=== PATIENT | male | born 1990 ===

== ENCOUNTER 2017-05-15 00:15 | Emergency (ER) | payer OTHER ==
[2017-05-15] MEDS ORDERED: RABIES VACCINE 2.5 Units PDR IM ONE (00:53)
[2017-05-15] MEDS ORDERED: Rabies Immune Globulin 150 INTLU/ML VIAL IM ONE (00:53)
[2017-05-15 00:54] VITALS: BP 128/57; PULSE 85; RESP 16; TEMP 98.6; O2SAT 100
[2017-05-15] MEDS ORDERED: Tmp-Smz 800 mg-160 mg DS Tab PO STA (01:15)
--- NOTE | 2017-05-15 01:33 | ED PDOC ---
HPI: Skin/Bite Injury Time Seen by Provider: 05/15/17 00:37 Chief Complaint (Nursing): Bite Chief Complaint (Provider): cat bite History Per: Patient, Family, Nephrology Social Worker History/Exam Limitations: no limitations Onset/Duration Of Symptoms: Hrs (2) Current Symptoms Are (Timing): Still Present Additional History Per: Patient Additional Complaint(s): 26 y/o male presents with cat bite to right hand sustained 2 hours prior to arrival. Patient states he was feeding a stray cat when a dog was approaching them and cat became scared and went to jump away, biting patients right hand and scratching right arm. Denies fever, pain/drainage at site, numbness/ weakness right upper extremity, limitation of movement. Last Tetanus unknown. Past Medical History Reviewed: Historical Data, Nursing Documentation, Vital Signs Vital Signs: Last Vital Signs Temp 98.6 F 05/15/17 00:50 Pulse 85 05/15/17 00:50 Resp 16 05/15/17 00:50 BP 128/57 L 05/15/17 00:50 Pulse Ox 100 05/15/17 01:36 - Medical History Other PMH: hard of hearing - Surgical History Surgical History: No Surg Hx - Family History Family History: States: No Known Family Hx - Home Medications Home Medications: Ambulatory Orders Medication Instructions Recorded Metronidazole [Flagyl] 500 mg PO TID #14 tablet 05/15/17 Sulfamethoxazole/Trimethoprim 1 tab PO BID #9 tab 05/15/17 [Bactrim DS 800 mg-160 mg] - Allergies Allergies/Adverse Reactions: Allergies Allergy/AdvReac Type Severity Reaction Status Date / Time acetaminophen [From Tylenol] Allergy SWELLING Verified 05/15/17 00:52 Penicillins Allergy SWELLING Verified 05/15/17 00:52 Review of Systems ROS Statement: Except As Marked, All Systems Reviewed And Found Negative Musculoskeletal: Positive for: Hand Pain Physical Exam - Reviewed Nursing Documentation Reviewed: Yes Vital Signs Reviewed: Yes - Physical Exam Appears: Positive for: Well, Non-toxic, No Acute Distress, Uncomfortable Head Exam: Positive for: ATRAUMATIC, NORMAL INSPECTION, NORMOCEPHALIC Skin: Positive for: Normal Color Eye Exam: Positive for: Normal appearance ENT: Positive for: Normal ENT Inspection Cardiovascular/Chest: Positive for: Regular Rate, Rhythm Respiratory: Positive for: Normal Breath Sounds Gastrointestinal/Abdominal: Positive for: Normal Exam Extremity: Positive for: Normal ROM, Other (multiple superficial puncture wounds dorsal right hand base of 1st digit. Superficial abrasion noted volar right forearm. No drainage, surrounding erythema, or swelling noted) Neurologic/Psych: Positive for: Alert, Oriented - ECG O2 Sat by Pulse Oximetry: 100 - Progress ED Course And Treament: Adacel IM, rabies immune globulin, rabies vaccine, bactrim DS, Flagyl PO Bites/abrasion irrigated with 250mL normal saline 1cc rabies IG able to be infiltrated around and in to wounds, remaining cc's distributed IM Bacitracin applied to wounds, bandaged Patient educated on wound care, rx Bactrim DS, flagyl given. Advised neosporin applications Follow up accordingly for vaccine schedule Disposition - Clinical Impression Clinical Impression: Cat bite - Patient ED Disposition Is Patient to be Admitted: No Counseled Patient/Family Regarding: Diagnosis, Need For Followup, Rx Given - Disposition Referrals: [facility] [Outside] Disposition: Routine/Home Disposition Time: 02:43 Condition: STABLE Prescriptions: Metronidazole [Flagyl] 500 mg PO TID #14 tablet Sulfamethoxazole/Trimethoprim [Bactrim DS 800 mg-160 mg] 1 tab PO BID #9 tab Instructions: Rabies Vaccine (By injection), Rabies Immune Globulin (By injection), Animal Bite (ED) Print Language: DUTCH
[2017-05-15] MEDS ORDERED: Tmp-Smz 800 mg-160 mg DS Tab ONE (01:57)
== END 2017-05-15 03:30 | disposition home or self-care (01) ==
LOC: H.ER 00:15
DX: S61.451A Open bite of right hand, initial encounter (principal); Z23 Encounter for immunization; Z88.0 Allergy status to penicillin; W55.01XA Bitten by cat, initial encounter

== ENCOUNTER 2017-05-18 19:44 | Emergency (ER) | payer OTHER ==
[2017-05-18 19:54] VITALS: BP 131/74; PULSE 90; RESP 16; TEMP 98.2; O2SAT 100
[2017-05-18] MEDS ORDERED: RABIES VACCINE 2.5 Units PDR IM ONE (20:09)
--- NOTE | 2017-05-18 20:14 | ED PDOC ---
HPI: General Adult Time Seen by Provider: 05/18/17 19:57 Chief Complaint (Nursing): Rabies Vaccine Series Chief Complaint (Provider): Rabies Vaccine Series History Per: Patient History/Exam Limitations: clinical condition Current Symptoms Are (Timing): Still Present Additional Complaint(s): 26 year old male presents to the emergency department for Day 3 of rabies vaccine series. Denies any medical complaints. Past Medical History Vital Signs: Last Vital Signs Temp 98.2 F 05/18/17 19:52 Pulse 90 05/18/17 19:52 Resp 16 05/18/17 19:52 BP 131/74 05/18/17 19:52 Pulse Ox 100 05/18/17 20:30 - Family History Family History: States: No Known Family Hx - Home Medications Home Medications: Ambulatory Orders Medication Instructions Recorded Metronidazole [Flagyl] 500 mg PO TID #14 tablet 05/15/17 Sulfamethoxazole/Trimethoprim 1 tab PO BID #9 tab 05/15/17 [Bactrim DS 800 mg-160 mg] - Allergies Allergies/Adverse Reactions: Allergies Allergy/AdvReac Type Severity Reaction Status Date / Time acetaminophen [From Tylenol] Allergy SWELLING Verified 05/15/17 00:52 Penicillins Allergy SWELLING Verified 05/15/17 00:52 Review of Systems ROS Statement: Except As Marked, All Systems Reviewed And Found Negative (As per HPI, otherwise negative) Skin: Positive for: Other (History of bite) Physical Exam - Reviewed Nursing Documentation Reviewed: Yes Vital Signs Reviewed: Yes - Physical Exam Appears: Positive for: Non-toxic, No Acute Distress Head Exam: Positive for: NORMAL INSPECTION Skin: Positive for: Normal Color, Warm, Dry Cardiovascular/Chest: Positive for: Regular Rate, Rhythm. Negative for: Murmur Respiratory: Positive for: Normal Breath Sounds. Negative for: Accessory Muscle Use, Respiratory Distress Extremity: Positive for: Normal ROM, Capillary Refill (normal). Negative for: Tenderness, Pedal Edema, Deformity, Swelling Neurologic/Psych: Positive for: Alert, personnel worker II-XII, Oriented (x3) - ECG O2 Sat by Pulse Oximetry: 100 (RA) Pulse Ox Interpretation: Normal Medical Decision Making Medical Decision Making: Time: 2008 Initial impression: Rabies Vaccine Series Initial plan: --Rabies Vaccine 2.5 units IM --Discharge Time: 2012 --Patient is stable for discharge. Advised to return to the ER for day 7 & day 14 rabies vaccination. Clinical Impression: Need for rabies vaccination Scribe Attestation: Documented by Sandi Maher, acting as a scribe for Faith Lam PA-C Provider Scribe Attestation: All medical record entries made by the Scribe were at my direction and personally dictated by me. I have reviewed the chart and agree that the record accurately reflects my personal performance of the history, physical exam, medical decision making, and the department course for this patient. I have also personally directed, reviewed, and agree with the discharge instructions and disposition. Disposition - Clinical Impression Clinical Impression: Need for rabies vaccination - Patient ED Disposition Is Patient to be Admitted: No Counseled Patient/Family Regarding: Need For Followup - Disposition Disposition: Routine/Home Disposition Time: 20:13 Condition: STABLE Additional Instructions: Patient advised to return to the ER on the following days for day 7 05/22/17 day 14 05/29/17 to complete rabies vaccination Instructions: Rabies Vaccine (By injection) Forms: [employer] (Barbadian) Print Language: LUXEMBOURGER - PA / FLIGHT ATTENDANT RAMP / Resident Statement MD/DO has reviewed & agrees with the documentation as recorded.
--- NOTE | 2017-05-18 20:14 | ED PDOC ---
HPI: General Adult Time Seen by Provider: 05/18/17 19:57 Chief Complaint (Nursing): Rabies Vaccine Series Chief Complaint (Provider): Rabies Vaccine Series History Per: Patient History/Exam Limitations: no limitations Current Symptoms Are (Timing): Still Present Additional Complaint(s): 26 year old male presents to the emergency department for Day 3 of rabies vaccine series. Denies any medical complaints. Past Medical History Reviewed: Historical Data, Nursing Documentation, Vital Signs Vital Signs: Last Vital Signs Temp 98.2 F 05/18/17 19:52 Pulse 90 05/18/17 19:52 Resp 16 05/18/17 19:52 BP 131/74 05/18/17 19:52 Pulse Ox 100 05/18/17 19:52 - Medical History PMH: No Chronic Diseases - Surgical History Surgical History: No Surg Hx - Family History Family History: States: Unknown Family Hx - Social History Current smoker - smoking cessation education provided: No Alcohol: None Drugs: Denies - Home Medications Home Medications: Ambulatory Orders Medication Instructions Recorded Metronidazole [Flagyl] 500 mg PO TID #14 tablet 05/15/17 Sulfamethoxazole/Trimethoprim 1 tab PO BID #9 tab 05/15/17 [Bactrim DS 800 mg-160 mg] - Allergies Allergies/Adverse Reactions: Allergies Allergy/AdvReac Type Severity Reaction Status Date / Time acetaminophen [From Tylenol] Allergy SWELLING Verified 05/15/17 00:52 Penicillins Allergy SWELLING Verified 05/15/17 00:52 Review of Systems ROS Statement: Except As Marked, All Systems Reviewed And Found Negative (As per HPI, otherwise negative) - ECG O2 Sat by Pulse Oximetry: 100 (RA) Pulse Ox Interpretation: Normal Medical Decision Making Medical Decision Making: Time: 2008 Initial impression: Rabies Vaccine Series Initial plan: --Rabies Vaccine 2.5 units IM --Discharge Scribe Attestation: Documented by Sandi Maher, acting as a scribe for Faith Lam PA-C Provider Scribe Attestation: All medical record entries made by the Scribe were at my direction and personally dictated by me. I have reviewed the chart and agree that the record accurately reflects my personal performance of the history, physical exam, medical decision making, and the department course for this patient. I have also personally directed, reviewed, and agree with the discharge instructions and disposition. Disposition - Disposition Forms: [employer] (Beninese)
== END 2017-05-18 21:08 | disposition home or self-care (01) ==
LOC: H.ER 19:44
DX: Z29.14 Encounter for prophylactic rabies immune globulin (principal)

== ENCOUNTER 2017-05-22 20:24 | Emergency (ER) | payer OTHER ==
[2017-05-22 20:53] VITALS: BP 90/60; PULSE 83; RESP 18; TEMP 98.6; O2SAT 99
[2017-05-22] MEDS ORDERED: RABIES VACCINE 2.5 Units PDR IM ONE (21:09)
--- NOTE | 2017-05-22 21:27 | ED PDOC ---
HPI: General Adult Time Seen by Provider: 05/22/17 21:07 Chief Complaint (Nursing): Rabies Vaccine Series Chief Complaint (Provider): Rabies Vaccine Series History Per: Patient History/Exam Limitations: no limitations Onset/Duration Of Symptoms: Days (x7) Current Symptoms Are (Timing): Still Present Additional Complaint(s): 26 year old male who presents to the emergency department for day 7 treatment of rabies vaccine series. Patient offers no medical complaints. PMD: none provided Past Medical History Reviewed: Historical Data, Nursing Documentation, Vital Signs Vital Signs: Last Vital Signs Temp 98.6 F 05/22/17 20:49 Pulse 83 05/22/17 20:49 Resp 18 05/22/17 20:49 BP 90/60 L 05/22/17 20:49 Pulse Ox 99 05/22/17 21:32 - Medical History PMH: No Chronic Diseases - Surgical History Surgical History: No Surg Hx - Family History Family History: States: Unknown Family Hx - Social History Current smoker - smoking cessation education provided: No Alcohol: None Drugs: Denies - Home Medications Home Medications: Ambulatory Orders Medication Instructions Recorded Metronidazole [Flagyl] 500 mg PO TID #14 tablet 05/15/17 Sulfamethoxazole/Trimethoprim 1 tab PO BID #9 tab 05/15/17 [Bactrim DS 800 mg-160 mg] - Allergies Allergies/Adverse Reactions: Allergies Allergy/AdvReac Type Severity Reaction Status Date / Time acetaminophen [From Tylenol] Allergy SWELLING Verified 05/15/17 00:52 Penicillins Allergy SWELLING Verified 05/15/17 00:52 Review of Systems ROS Statement: Except As Marked, All Systems Reviewed And Found Negative Skin: Positive for: Other (known history of bite) Physical Exam - Reviewed Nursing Documentation Reviewed: Yes Vital Signs Reviewed: Yes - Physical Exam Appears: Positive for: Well, Non-toxic, No Acute Distress Skin: Positive for: Normal Color, Warm, Dry. Negative for: Rash Cardiovascular/Chest: Positive for: Regular Rate, Rhythm, Chest Non Tender Respiratory: Positive for: Normal Breath Sounds. Negative for: Decreased Breath Sounds, Respiratory Distress Gastrointestinal/Abdominal: Positive for: Normal Exam, Soft. Negative for: Tenderness Extremity: Positive for: Normal ROM (upper/lower). Negative for: Tenderness ( upper), Pedal Edema (bilateral), Deformity (upper/lower), Swelling (upper) Neurologic/Psych: Positive for: Alert (x3), electronic sensing equipment assembler II-XII (intact), Oriented. Negative for: Motor/Sensory Deficits - ECG O2 Sat by Pulse Oximetry: 99 (RA) Pulse Ox Interpretation: Normal Medical Decision Making Medical Decision Making: Initial Impression: Rabies Vaccine Series Initial Plan: * Rabavert vac inj 2.5units IM Scribe Attestation: Documented by Josseline Mccall, acting as a scribe for Faith Lam PA-C. Provider Scribe Attestation: All medical record entries made by the Scribe were at my direction and personally dictated by me. I have reviewed the chart and agree that the record accurately reflects my personal performance of the history, physical exam, medical decision making, and the department course for this patient. I have also personally directed, reviewed, and agree with the discharge instructions and disposition. Disposition - Clinical Impression Clinical Impression: Need for rabies vaccination - Patient ED Disposition Is Patient to be Admitted: No Counseled Patient/Family Regarding: Diagnosis, Need For Followup - Disposition Disposition: Routine/Home Disposition Time: 21:10 Condition: STABLE Additional Instructions: Return to the ER on day 14 05/29/17, for your last rabies vaccine. Instructions: Rabies Vaccine (By injection) Forms: [employer] (Cypriot) Print Language: PORTUGUESE - PA / NETWORK SYSTEMS ANALYST / Resident Statement MD/ has reviewed & agrees with the documentation as recorded.
== END 2017-05-22 21:50 | disposition home or self-care (01) ==
LOC: H.ER 20:24
DX: Z29.14 Encounter for prophylactic rabies immune globulin (principal); Z88.0 Allergy status to penicillin

== ENCOUNTER 2017-05-29 18:09 | Emergency (ER) | payer OTHER ==
[2017-05-29 19:01] VITALS: BP 161/77; PULSE 93; RESP 16; TEMP 98.2; O2SAT 99
--- NOTE | 2017-05-29 20:05 | ED PDOC ---
Upper Extremity Pain/Injury Time Seen by Provider: 05/29/17 19:07 Chief Complaint (Nursing): Rabies Vaccine Series Chief Complaint (Provider): Rabies Vaccine Series History Per: Patient History/Exam Limitations: no limitations Onset/Duration Of Symptoms: Days Pain Scale Rating Of: 0 Exacerbating Factor(s): Nothing Additional Complaint(s): Guy Piedra is a 26 year old male, with no significant past medical history, who presents to the emergency department for day 14 of rabies vaccine series. Bite in right hand completely healed. Patient denies any current medical complaints. PMD: None provided. Past Medical History Reviewed: Historical Data, Nursing Documentation, Vital Signs Vital Signs: Last Vital Signs Temp 98.2 F 05/29/17 18:58 Pulse 93 H 05/29/17 18:58 Resp 16 05/29/17 18:58 BP 161/77 H 05/29/17 18:58 Pulse Ox 99 05/29/17 18:58 - Medical History PMH: No Chronic Diseases - Surgical History Surgical History: No Surg Hx - Family History Family History: States: Unknown Family Hx - Home Medications Home Medications: Ambulatory Orders Medication Instructions Recorded Metronidazole [Flagyl] 500 mg PO TID #14 tablet 05/15/17 Sulfamethoxazole/Trimethoprim 1 tab PO BID #9 tab 05/15/17 [Bactrim DS 800 mg-160 mg] - Allergies Allergies/Adverse Reactions: Allergies Allergy/AdvReac Type Severity Reaction Status Date / Time acetaminophen [From Tylenol] Allergy SWELLING Verified 05/29/17 18:58 Penicillins Allergy SWELLING Verified 05/29/17 18:58 Review of Systems ROS Statement: Except As Marked, All Systems Reviewed And Found Negative Musculoskeletal: Negative for: Hand Pain (right hand bite healed) Physical Exam - Reviewed Nursing Documentation Reviewed: Yes Vital Signs Reviewed: Yes - Physical Exam Appears: Positive for: Well, Non-toxic, No Acute Distress Head Exam: Positive for: ATRAUMATIC, NORMAL INSPECTION, NORMOCEPHALIC Skin: Positive for: Normal Color, Warm, Dry Eye Exam: Positive for: Normal appearance Neck: Positive for: Painless ROM, Supple Respiratory: Negative for: Respiratory Distress Extremity: Positive for: Normal ROM (right hand). Negative for: Tenderness ( right hand), Pedal Edema, Calf Tenderness, Deformity (right hand), Swelling ( right hand) Neurologic/Psych: Positive for: Alert, Oriented (x3). Negative for: Motor/ Sensory Deficits - ECG O2 Sat by Pulse Oximetry: 99 (RA) Pulse Ox Interpretation: Normal Medical Decision Making Medical Decision Making: Initial Impression: Rabies vaccine series --Rabies Vaccine 2.5 units IM administered to the patient. ~ Scribe Attestation: Documented by Nicolas Colón, acting as a scribe for Faith Lam PA-C. Provider Scribe Attestation: All medical record entries made by the Scribe were at my direction and personally dictated by me. I have reviewed the chart and agree that the record accurately reflects my personal performance of the history, physical exam, medical decision making, and the department course for this patient. I have also personally directed, reviewed, and agree with the discharge instructions and disposition. Disposition - Clinical Impression Clinical Impression: Need for rabies vaccination - Patient ED Disposition Is Patient to be Admitted: No - Disposition Disposition: Routine/Home Disposition Time: 20:50 Condition: STABLE Instructions: Rabies Vaccine (By injection) Forms: [employer] (Cuban) Print Language: KENYAN - PA / MARKETING INFORMATION COORDINATOR / Resident Statement / has reviewed & agrees with the documentation as recorded.
[2017-05-29] MEDS: RABIES VACCINE 2.5 Units PDR IM ONE (20:45)
== END 2017-05-29 20:50 | disposition home or self-care (01) ==
LOC: H.ER 18:09
DX: Z29.14 Encounter for prophylactic rabies immune globulin (principal); Z88.0 Allergy status to penicillin

== ENCOUNTER 2017-11-13 20:33 | Emergency (ER) | payer OTHER ==
[2017-11-13 21:06] VITALS: RESP 18; TEMP 98.5; O2SAT 99
--- NOTE | 2017-11-13 21:50 | ED PDOC ---
HPI: Male Pain Time Seen by Provider: 11/13/17 21:16 Chief Complaint (Nursing): Male Genitourinary Chief Complaint (Provider): dysuria History Per: Patient History/Exam Limitations: no limitations Onset/Duration Of Symptoms: Days (2 months) Current Symptoms Are (Timing): Still Present Additional Complaint(s): 26 y/o male presents for evaluation of dysuria x 2 months. Associated increased urine frequency, and suprapubic fullness. Denies fever, nausea/ vomiting, back pain, penile discharge, testicular pain/swelling. Patient states he has not been sexually active in over 2 years. Past Medical History Reviewed: Historical Data, Nursing Documentation, Vital Signs Vital Signs: Last Vital Signs Temp 98.5 F 11/13/17 21:07 Pulse 124 H 11/13/17 21:14 Resp 18 11/13/17 21:07 BP 127/80 11/13/17 21:07 Pulse Ox 99 11/13/17 21:07 - Medical History PMH: Anxiety - Surgical History Surgical History: No Surg Hx - Family History Family History: States: Unknown Family Hx - Living Arrangements Living Arrangements: With Family - Home Medications Home Medications: Ambulatory Orders Medication Instructions Recorded Metronidazole [Flagyl] 500 mg PO TID #14 tablet 05/15/17 Sulfamethoxazole/Trimethoprim 1 tab PO BID #9 tab 05/15/17 [Bactrim DS 800 mg-160 mg] Ciprofloxacin HCl [Cipro] 500 mg PO BID #5 tab 11/14/17 Phenazopyridine HCl [Pyridium] 100 mg PO TID PRN #5 tab 11/14/17 - Allergies Allergies/Adverse Reactions: Allergies Allergy/AdvReac Type Severity Reaction Status Date / Time acetaminophen [From Tylenol] Allergy SWELLING Verified 05/29/17 18:58 Penicillins Allergy SWELLING Verified 05/29/17 18:58 Review of Systems ROS Statement: Except As Marked, All Systems Reviewed And Found Negative Genitourinary Male: Positive for: Dysuria, Frequency Physical Exam - Reviewed Nursing Documentation Reviewed: Yes Vital Signs Reviewed: Yes - Physical Exam Appears: Positive for: Well, Non-toxic, No Acute Distress Head Exam: Positive for: ATRAUMATIC, NORMAL INSPECTION, NORMOCEPHALIC Skin: Positive for: Normal Color Eye Exam: Positive for: Normal appearance ENT: Positive for: Normal ENT Inspection Cardiovascular/Chest: Positive for: Regular Rate, Rhythm Respiratory: Positive for: Normal Breath Sounds Gastrointestinal/Abdominal: Positive for: Normal Exam Male Genital Exam: Positive for: normal genitalia, 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 Negative for: scrotum tenderness (R), scrotum tenderness (L) , testicular tenderness (R), testicular tenderness (L), urethral discharge Back: Positive for: Normal Inspection Extremity: Positive for: Normal ROM Neurologic/Psych: Positive for: Alert, Oriented - Laboratory Results Result Diagrams: 11/13/17 23:04 11/13/17 23:04 - ECG O2 Sat by Pulse Oximetry: 99 - Progress ED Course And Treament: urine, gc/chlamydia Case discussed with ED attending Dr. Magaña, will order labs/CT to r/out prostatitis, colitis EXAM: CT Abdomen and Pelvis With Intravenous Contrast CLINICAL HISTORY: The patient is a 26 years male; Pain; Other: Suprpubic; Additional info: Suprapubic pain, dysuria 11/13/2017 10:46 PM TECHNIQUE: Axial computed tomography images of the abdomen and pelvis with intravenous contrast. All CT scans at this facility use at least one of these dose optimization techniques: automated exposure control; mA and/or kV adjustment per patient size (includes targeted exams where dose is matched to clinical indication); or iterative reconstruction. Coronal and sagittal reformatted images were created and reviewed. CONTRAST: 90 mL of [id number] administered intravenously. COMPARISON: No relevant prior studies available. FINDINGS: Lung bases: Unremarkable. No mass. No consolidation. ABDOMEN: Liver: Unremarkable. No mass. Gallbladder and bile ducts: Unremarkable. No calcified stones. No ductal dilation. Pancreas: Unremarkable. No ductal dilation. Spleen: Unremarkable. No splenomegaly. Adrenals: Unremarkable. No mass. Kidneys and ureters: Unremarkable. Symmetric enhancement. No hydronephrosis. Stomach and bowel: Unremarkable. No dilated bowel loops. PELVIS: Appendix: No findings to suggest acute appendicitis. Bladder: Unremarkable. Reproductive: Bilateral hydroceles, partially visualized. ABDOMEN and PELVIS: Intraperitoneal space: Unremarkable. No free air. No significant fluid collection. Bones/joints: No acute fracture. No dislocation. Soft tissues: Unremarkable. Vasculature: Unremarkable. No abdominal aortic aneurysm. Lymph nodes: Unremarkable. No enlarged lymph nodes. IMPRESSION: No acute findings. PAtient educated on findings, will treat for clinical signs/symptoms of UTI. Rx pyridium, cipro given (doses given in ED) Advised follow up PMD 2-3 days. Return precautions given Disposition - Clinical Impression Clinical Impression: Dysuria - Patient ED Disposition Is Patient to be Admitted: No Counseled Patient/Family Regarding: Studies Performed, Diagnosis, Need For Followup, Rx Given - Disposition Referrals: [facility] [Outside] Disposition: Routine/Home Disposition Time: 01:00 Condition: STABLE Prescriptions: Ciprofloxacin HCl [Cipro] 500 mg PO BID #5 tab Phenazopyridine HCl [Pyridium] 100 mg PO TID PRN #5 tab PRN Reason: Urinary Discomt Instructions: Dysuria, Adult (DC) Print Language: ITALIAN
[2017-11-13 22:32] LABS: URINE BILIRUBIN NEGATIVE (NEGATIVE); URINE BLOOD NEGATIVE (NEGATIVE); URINE CLARITY CLEAR (Clear); URINE COLOR STRAW (YELLOW); URINE GLUCOSE (UA) NEG (Normal); URINE LEUKOCYTE ESTERASE NEG Leu/uL (Negative); URINE PROTEIN NEGATIVE (NEGATIVE); URINE UROBILINOGEN 0.2-1.0 mg/dL (0.2-1.0)
[2017-11-13 22:36] LABS: URINE BACTERIA FEW (<OCC)
[2017-11-13 23:14] LABS: BASO % 0.3 % (0.0-2.0); EOS % 0.5 % (0.0-4.0); HEMOGLOBIN 15.1 g/dL (12.0-18.0); LYMPH # 0.9 K/uL (1.0-4.3); LYMPH % 9.6 % (20.0-40.0); MEAN CELL VOLUME 89.4 fl (80.0-94.0); MEAN CORPUSCULAR HEMOGLOBIN 30.6 pg (27.0-31.0); MEAN CORPUSCULAR HGB CONC 34.2 g/dL (33.0-37.0); MEAN PLATELET VOLUME 7.3 fl (7.2-11.7); MONO # 0.4 K/uL (0.0-0.8); MONO % 4.1 % (0.0-10.0); NEUT # 8.4 K/uL (1.8-7.0); NEUT % 85.5 % (50.0-75.0); PLATELET COUNT 334 K/uL (130-400); RBC 4.94 Mil/uL (4.40-5.90); RED CELL DISTRIBUTION WIDTH 12.6 % (11.5-14.5); WHITE BLOOD COUNT 9.8 K/uL (4.8-10.8)
[2017-11-13 23:20] LABS: ALB/GLOB RATIO 1.3 (1.0-2.1); ALT/SGPT 31 U/L (21-72); AST/SGOT 32 U/L (17-59); BLOOD UREA NITROGEN 13 mg/dl (9-20); CALCIUM 9.5 mg/dL (8.4-10.2); GFR NON-AFRICAN AMERICAN > 60
[2017-11-13] MEDS ORDERED: Iohexol 300 100 ML IJ ONE (23:45)
[2017-11-13] MEDS ORDERED: Sodium Chloride 0.9% 50 ML IV ONE (23:45)
[2017-11-14 01:19] VITALS: BP 126/81; PULSE 91
[2017-11-14 01:26] LABS: LYMPHOCYTE 8 % (20-50); MONOCYTE 6 % (0-10); NEUTROPHIL 86 % (42-75); PLATELET ESTIMATE SLIGHTLY INCREASED (NORMAL); TOTAL CELLS COUNTED 100
--- NOTE | 2017-11-14 08:42 | CT ---
Date of service: 11/13/2017 PROCEDURE: CT Abdomen and Pelvis with contrast HISTORY: suprapubic pain, dysuria COMPARISON: None. TECHNIQUE: Contrast dose: 90 mL Omnipaque 300 Radiation dose: Total exam DLP = 233 mGy-cm. This CT exam was performed using one or more of the following dose reduction techniques: Automated exposure control, adjustment of the mA and/or kV according to patient size, and/or use of iterative reconstruction technique. FINDINGS: LOWER THORAX: Unremarkable. LIVER: Unremarkable. No gross lesion or ductal dilatation. GALLBLADDER AND BILE DUCTS: Unremarkable. PANCREAS: Unremarkable. No gross lesion or ductal dilatation. SPLEEN: Unremarkable. ADRENALS: Unremarkable. No mass. KIDNEYS AND URETERS: Unremarkable. No hydronephrosis. No solid mass. VASCULATURE: Unremarkable. No aortic aneurysm. BOWEL: Stool retention.. No obstruction. No gross mural thickening. APPENDIX: The appendix is not visualized with certainty. No pericecal inflammatory change to suggest acute appendicitis noted. PERITONEUM: Unremarkable. No free fluid. No free air. LYMPH NODES: Unremarkable. No enlarged lymph nodes. BLADDER: Moderately distended. No intraluminal masses ROP bladder wall thickening apparent REPRODUCTIVE: Prostate and seminal vesicles are unremarkable. The testicles are not visually included on this exam. Bilateral hydroceles are suggested. BONES: No acute fracture. OTHER FINDINGS: None. IMPRESSION: No urolithiasis. No hydronephrosis or hydroureter. No suspect renal or bladder mass appreciated Moderate bladder distention -nonspecific. Normal size prostate. Bilateral hydroceles apparent. If further evaluation of this is needed consider scrotal ultrasound Concordant results (preliminary interpretation) provided by [employer]. Additional recommendations are comments mention in this report
== END 2017-11-14 01:18 | disposition home or self-care (01) ==
LOC: EDBD 20:33 → H.ER 20:33
DX: R30.0 Dysuria (principal); N43.3 Hydrocele, unspecified; Z88.0 Allergy status to penicillin
CPT/HCPCS: 74177; 80053; 81003; 85025; 87086; 87491; 87591; 99283; Q9967

== ENCOUNTER 2017-12-18 19:45 | Emergency (ER) | payer OTHER ==
[2017-12-18 20:11] VITALS: O2SAT 97
[2017-12-18 22:00] LABS: SQUAMOUS EPITHIAL < 1 /hpf (0-5); URINE BILIRUBIN NEGATIVE (NEGATIVE); URINE BLOOD NEGATIVE (NEGATIVE); URINE CLARITY CLEAR (Clear); URINE COLOR YELLOW (YELLOW); URINE GLUCOSE (UA) NEG (Normal); URINE LEUKOCYTE ESTERASE NEG Leu/uL (Negative); URINE PROTEIN NEGATIVE (NEGATIVE); URINE UROBILINOGEN 0.2-1.0 mg/dL (0.2-1.0)
--- NOTE | 2017-12-18 23:02 | ED PDOC ---
HPI: Male Pain Time Seen by Provider: 12/18/17 20:28 Chief Complaint (Nursing): Groin Pain Chief Complaint (Provider): Pain - tip of penis History Per: Patient History/Exam Limitations: no limitations Onset/Duration Of Symptoms: Days (2 months ) Quality Of Discomfort: Unable To Describe Associated Symptoms: denies: Fever, Chills, Nausea, Vomiting, Loss Of Appetite, Back Pain, Chest Pain, Constipation, Urinary Symptoms Alleviating Factors: None Additional Complaint(s): 27 yo male presents with penile pain x 2 months when he ejaculates or urinates. Pt denies fever/chills. Pt states he also feels like the color of the tip of the penis is more yellow then normal. Pt states sometimes the skin on his penis also peels. Pt states he is not sexually active. Pt has not been seen for this issues in the past. Pt has not taken any OTC medications Past Medical History Vital Signs: Last Vital Signs Temp 98.4 F 12/18/17 20:09 Pulse 118 H 12/18/17 20:09 Resp 16 12/18/17 20:09 BP 119/80 12/18/17 20:09 Pulse Ox 97 12/18/17 20:09 - Medical History PMH: Anxiety - Surgical History Surgical History: No Surg Hx - Family History Family History: States: Unknown Family Hx - Living Arrangements Living Arrangements: With Family - Social History Current smoker - smoking cessation education provided: No Alcohol: None Drugs: Denies - Home Medications Home Medications: Ambulatory Orders Medication Instructions Recorded Metronidazole [Flagyl] 500 mg PO TID #14 tablet 05/15/17 Sulfamethoxazole/Trimethoprim 1 tab PO BID #9 tab 05/15/17 [Bactrim DS 800 mg-160 mg] Ciprofloxacin HCl [Cipro] 500 mg PO BID #5 tab 11/14/17 Phenazopyridine HCl [Pyridium] 100 mg PO TID PRN #5 tab 11/14/17 Nystatin [Mycostatin Oint] 1 unit TP BID #1 tube 12/18/17 - Allergies Allergies/Adverse Reactions: Allergies Allergy/AdvReac Type Severity Reaction Status Date / Time acetaminophen [From Tylenol] Allergy SWELLING Verified 12/18/17 20:09 Penicillins Allergy SWELLING Verified 12/18/17 20:09 Review of Systems ROS Statement: Except As Marked, All Systems Reviewed And Found Negative Constitutional: Negative for: Fever, Chills Genitourinary Male: Positive for: Dysuria, Penile Pain Skin: Positive for: Other Physical Exam - Reviewed Nursing Documentation Reviewed: Yes Vital Signs Reviewed: Yes - Physical Exam Appears: Positive for: Well, Non-toxic, No Acute Distress Head Exam: Positive for: ATRAUMATIC, NORMAL INSPECTION, NORMOCEPHALIC Skin: Positive for: Normal Color, Warm, DRY Eye Exam: Positive for: Normal appearance ENT: Positive for: Normal ENT Inspection Neck: Positive for: Normal, Painless ROM Respiratory: Negative for: Accessory Muscle Use, Respiratory Distress Male Genital Exam: Positive for: normal genitalia, no hernia. Negative for: erythema, lesions, scrotum tenderness (R), scrotum tenderness (L), testicular tenderness (R), testicular tenderness (L), urethral discharge Back: Positive for: Normal Inspection Rectal: Positive for: Deferred Extremity: Positive for: Normal ROM Neurologic/Psych: Positive for: Alert, Oriented - ECG O2 Sat by Pulse Oximetry: 97 Medical Decision Making Medical Decision Making: Urine normal. discussed f/u with urologist. Disposition - Clinical Impression Clinical Impression: Pain in penis - Patient ED Disposition Is Patient to be Admitted: No Counseled Patient/Family Regarding: Diagnosis, Need For Followup, Rx Given - Disposition Referrals: Sunil Guevara MD [Medical Doctor] - Disposition: Routine/Home Disposition Time: 22:59 Condition: STABLE Prescriptions: Nystatin [Mycostatin Oint] 1 unit TP BID #1 tube Forms: [employer] (Luxembourgish)
[2017-12-18 23:26] VITALS: BP 118/78; PULSE 78; RESP 18; TEMP 98.2
== END 2017-12-18 23:26 | disposition home or self-care (01) ==
LOC: H.ER 19:45
DX: N48.89 Other specified disorders of penis (principal); F41.9 Anxiety disorder, unspecified; Z88.0 Allergy status to penicillin

== ENCOUNTER 2018-01-11 17:27 | Emergency (ER) | payer OTHER ==
[2018-01-11 18:19] VITALS: BP 121/75; PULSE 112; RESP 20; TEMP 99.1; O2SAT 100
--- NOTE | 2018-01-11 19:41 | ED PDOC ---
HPI: Back Time Seen by Provider: 01/11/18 19:01 Chief Complaint (Nursing): Back Pain Chief Complaint (Provider): tailbone pain History Per: Patient, Family (mother), Placement Assistant ([facility] Colin, #[id number]) Additional Complaint(s): 27-year-old male presents to emergency Department with pain to tailbone region ongoing for 6 months with palpable lump to affected area. Patient fell 6 years ago injuring tailbone and is not sure if this previous fall is related to current symptoms. He denies any active drainage. He states that area is tender to touch but he denies any drainage, fever or chills. PMD: [facility] Past Medical History Reviewed: Historical Data, Nursing Documentation, Vital Signs Vital Signs: Last Vital Signs Temp 99.1 F 01/11/18 18:18 Pulse 112 H 01/11/18 18:18 Resp 20 01/11/18 18:18 BP 121/75 01/11/18 18:18 Pulse Ox 100 01/11/18 18:18 - Medical History PMH: Anxiety - Family History Family History: States: No Known Family Hx - Living Arrangements Living Arrangements: With Family - Social History Current smoker - smoking cessation education provided: No Alcohol: None Drugs: Denies - Home Medications Home Medications: Ambulatory Orders Medication Instructions Recorded Metronidazole [Flagyl] 500 mg PO TID #14 tablet 05/15/17 Sulfamethoxazole/Trimethoprim 1 tab PO BID #9 tab 05/15/17 [Bactrim DS 800 mg-160 mg] Ciprofloxacin HCl [Cipro] 500 mg PO BID #5 tab 11/14/17 Phenazopyridine HCl [Pyridium] 100 mg PO TID PRN #5 tab 11/14/17 Nystatin [Mycostatin Oint] 1 unit TP BID #1 tube 12/18/17 Cephalexin [Keflex] 500 mg PO TID #21 capsule 01/11/18 Ibuprofen [Motrin Tab] 800 mg PO Q8 PRN #20 tab 01/11/18 - Allergies Allergies/Adverse Reactions: Allergies Allergy/AdvReac Type Severity Reaction Status Date / Time acetaminophen [From Tylenol] Allergy SWELLING Verified 01/11/18 18:18 Penicillins Allergy SWELLING Verified 01/11/18 18:18 Review of Systems ROS Statement: Except As Marked, All Systems Reviewed And Found Negative Constitutional: Negative for: Fever Musculoskeletal: Positive for: Other (pain to tailbone region x 6 months) Physical Exam - Reviewed Nursing Documentation Reviewed: Yes Vital Signs Reviewed: Yes - Physical Exam Appears: Positive for: Well, Non-toxic, No Acute Distress Skin: Positive for: Normal Color. Negative for: Rash Eye Exam: Positive for: Normal appearance Cardiovascular/Chest: Positive for: Regular Rate, Rhythm Respiratory: Positive for: Normal Breath Sounds Back: Positive for: Other (Indurated pilonidal cyst noted with minimal erythema , no central pointing or active drainage) Extremity: Positive for: Normal ROM Neurologic/Psych: Positive for: Alert, Oriented - ECG O2 Sat by Pulse Oximetry: 100 Pulse Ox Interpretation: Normal Medical Decision Making Medical Decision Making: Impression: Pilonidal cyst Patient given prescriptions for Motrin and Keflex and was referred to clinic for follow up. Disposition - Clinical Impression Clinical Impression: Pilonidal cyst - Patient ED Disposition Is Patient to be Admitted: No Counseled Patient/Family Regarding: Diagnosis, Need For Followup, Rx Given - Disposition Referrals: [facility] [Outside] Disposition: Routine/Home Disposition Time: 20:15 Condition: STABLE Additional Instructions: Apply warm compresses with Epsom salts to affected area as often as possible. Take prescription meds as directed. Follow-up with clinic to arrange for appointment with surgeon. Prescriptions: Cephalexin [Keflex] 500 mg PO TID #21 capsule Ibuprofen [Motrin Tab] 800 mg PO Q8 PRN #20 tab PRN Reason: Pain, Moderate (4-7) Instructions: Pilonidal Cyst Forms: [employer] (Guamanian) Print Language: UGANDAN
== END 2018-01-11 20:32 | disposition home or self-care (01) ==
LOC: H.ER 17:27
DX: L05.91 Pilonidal cyst without abscess (principal); F41.9 Anxiety disorder, unspecified; Z88.0 Allergy status to penicillin

== ENCOUNTER 2018-09-19 18:55 | Emergency (ER) | payer SELFPAY ==
[2018-09-19] MEDS ORDERED: Sodium Chloride 0.9% 1,000 ML IV STA (19:47)
--- NOTE | 2018-09-19 19:57 | ED PDOC ---
HPI: Abdomen Time Seen by Provider: 09/19/18 19:12 Chief Complaint (Nursing): Abdominal Pain Chief Complaint (Provider): Abdominal Pain, Constipation History Per: Patient History/Exam Limitations: no limitations Onset/Duration Of Symptoms: Waxing/Waning, Intermittent Episodes, Worse Since (x2 days) Current Symptoms Are (Timing): Still Present Additional Complaint(s): 27 year old male presents to the ED for evaluation of lower abdominal pain associated with constipation which he has had his whole life intermittently, worse the past two days s/p his last normal bowel movement two days ago. He states since then the lower abdominal pain has been waxing and waning, with occasional stool passed described as mucoid and blood-tinged, unrelieved with an OTC constipation medication. Just prior to arrival, patient notes the abdominal pain was severe, but had this type of mucoid stool movement and feels a little bit better. Denies nausea and vomiting. Additionally, he also reports having difficulty with urination for the last year which he saw a urologist for and was put on a Flomax trial. Past Medical History Reviewed: Historical Data, Nursing Documentation, Vital Signs Vital Signs: Last Vital Signs Temp 98.6 F 09/19/18 19:03 Pulse 135 H 09/19/18 19:03 Resp 20 09/19/18 19:03 BP 124/78 09/19/18 19:03 Pulse Ox 97 09/19/18 19:03 Primary Care Provider: Non [facility] Provider, ([facility]) - Medical History PMH: Anxiety - Surgical History Surgical History: No Surg Hx - Family History Family History: States: No Known Family Hx - Social History Current smoker - smoking cessation education provided: No Alcohol: None Drugs: Denies - Home Medications Home Medications: Ambulatory Orders Medication Instructions Recorded Metronidazole [Flagyl] 500 mg PO TID #14 tablet 05/15/17 Sulfamethoxazole/Trimethoprim 1 tab PO BID #9 tab 05/15/17 [Bactrim DS 800 mg-160 mg] Ciprofloxacin HCl [Cipro] 500 mg PO BID #5 tab 11/14/17 Phenazopyridine HCl [Pyridium] 100 mg PO TID PRN #5 tab 11/14/17 Nystatin [Mycostatin Oint] 1 unit TP BID #1 tube 12/18/17 Cephalexin [Keflex] 500 mg PO TID #21 capsule 01/11/18 Ibuprofen [Motrin Tab] 800 mg PO Q8 PRN #20 tab 01/11/18 - Allergies Allergies/Adverse Reactions: Allergies Allergy/AdvReac Type Severity Reaction Status Date / Time acetaminophen [From Tylenol] Allergy SWELLING Verified 01/11/18 18:18 Penicillins Allergy SWELLING Verified 01/11/18 18:18 Review of Systems ROS Statement: Except As Marked, All Systems Reviewed And Found Negative (as per HPI) Gastrointestinal: Positive for: Abdominal Pain (lower), Constipation (with some mucoid/ blood tinged stool episodes). Negative for: Nausea, Vomiting Genitourinary Male: Positive for: Other (difficulty urinating) Physical Exam - Reviewed Nursing Documentation Reviewed: Yes Vital Signs Reviewed: Yes - Physical Exam Appears: Positive for: Uncomfortable, In Acute Distress Head Exam: Positive for: ATRAUMATIC, NORMOCEPHALIC Skin: Positive for: Warm, Dry Eye Exam: Positive for: EOMI, PERRL ENT: Negative for: Pharyngeal Erythema, Tonsillar Exudate Neck: Positive for: Painless ROM, Supple Cardiovascular/Chest: Positive for: Regular Rate, Rhythm. Negative for: Murmur Respiratory: Positive for: Normal Breath Sounds. Negative for: Respiratory Distress Gastrointestinal/Abdominal: Positive for: Bowel Sounds (hyperactive), Soft, Tenderness (diffusely to lower abdomen), Guarding (voluntary guarding of lower abdomen). Negative for: Rebound Back: Positive for: Normal Inspection. Negative for: L CVA Tenderness, R CVA Tenderness Extremity: Positive for: Normal ROM. Negative for: Deformity Lymphatic: Negative for: Adenopathy Neurological/Psych: Positive for: Awake, Alert. Negative for: Motor/Sensory Deficits - Laboratory Results Result Diagrams: 09/19/18 20:10 09/19/18 20:10 - ECG O2 Sat by Pulse Oximetry: 97 (RA) Pulse Ox Interpretation: Normal Medical Decision Making Medical Decision Making: Initial Impression: abdominal pain DDx includes but is not limited to: constipation, colitis, enteritis Initial Plan: --CMP --Lact acid --Lipase chem --CBC with differential --Obstructive series XR --Normal saline IV --Toradol 15mg IVP --Urinalysis Scribe Attestation: Documented by Cori Joyce, acting as a scribe for Yana Magaña MD. Provider Scribe Attestation: All medical record entries made by the Scribe were at my direction and personally dictated by me. I have reviewed the chart and agree that the record accurately reflects my personal performance of the history, physical exam, medical decision making, and the department course for this patient. I have also personally directed, reviewed, and agree with the discharge instructions and disposition. Disposition - Clinical Impression Clinical Impression: Abdominal pain, Constipation - Disposition Disposition: Transfer of Care Disposition Time: 00:00 Condition: STABLE Instructions: Stomach Ache and Stomach Upset Forms: [employer] (Citizen Of [place]), Opioid Discharge Information Print Language: GERMAN Patient Signed Over To: Shantel Lopez Handoff Comments: pending ct scan, reassessment and final ER disposition
[2018-09-19 20:28] LABS: BASO % 0.5 % (0.0-2.0); EOS # 0.1 K/uL (0.0-0.7); EOS % 2.7 % (0.0-4.0); HEMOGLOBIN 14.7 g/dL (12.0-18.0); LYMPH # 1.6 K/uL (1.0-4.3); LYMPH % 34.6 % (20.0-40.0); MEAN CELL VOLUME 88.7 fl (80.0-94.0); MEAN CORPUSCULAR HEMOGLOBIN 30.4 pg (27.0-31.0); MEAN CORPUSCULAR HGB CONC 34.3 g/dL (33.0-37.0); MEAN PLATELET VOLUME 7.1 fl (7.2-11.7); MONO # 0.2 K/uL (0.0-0.8); MONO % 5.4 % (0.0-10.0); NEUT # 2.6 K/uL (1.8-7.0); NEUT % 56.8 % (50.0-75.0); RBC 4.85 Mil/uL (4.40-5.90); RED CELL DISTRIBUTION WIDTH 12.3 % (11.5-14.5)
[2018-09-19 20:30] LABS: WHITE BLOOD COUNT 4.6 K/uL (4.8-10.8)
[2018-09-19 20:31] LABS: URINE BILIRUBIN NEGATIVE (NEGATIVE); URINE BLOOD NEGATIVE (NEGATIVE); URINE CLARITY SLIGHTY-CLOUDY (Clear); URINE COLOR YELLOW (YELLOW); URINE GLUCOSE (UA) 50 mg/dL (NEGATIVE); URINE LEUKOCYTE ESTERASE NEG Leu/uL (Negative); URINE PROTEIN NEGATIVE (NEGATIVE); URINE UROBILINOGEN 0.2-1.0 mg/dL (0.2-1.0)
[2018-09-19 20:35] LABS: ALB/GLOB RATIO 1.4 (1.0-2.1); ALBUMIN 4.8 g/dL (3.5-5.0); ALT/SGPT 25 U/L (21-72); AST/SGOT 27 U/L (17-59); BLOOD UREA NITROGEN 11 mg/dl (9-20); GFR NON-AFRICAN AMERICAN > 60; LIPASE 46 U/L (23-300)
[2018-09-19] MEDS ORDERED: Iohexol 240 (50 ml) PO STA (21:01)
[2018-09-19] MEDS ORDERED: Iohexol 240 (50 ml) ONE (21:15)
[2018-09-19] MEDS ORDERED: Sodium Chloride 0.9% 50 ML IV ONE (23:15)
[2018-09-19] MEDS ORDERED: Iohexol 300 100 ML IJ ONE (23:15)
--- NOTE | 2018-09-20 01:09 | ED PDOC ---
- Laboratory Results Result Diagrams: 09/19/18 20:10 09/19/18 20:10 Lab Results: Total Bilirubin 0.7 mg/dl (0.2-1.3) 09/19/18 20:10 AST 27 U/L (17-59) 09/19/18 20:10 ALT 25 U/L (21-72) 09/19/18 20:10 Alkaline Phosphatase 81 U/L (38-126) 09/19/18 20:10 Total Protein 8.4 G/DL (6.3-8.2) H 09/19/18 20:10 Albumin 4.8 g/dL (3.5-5.0) 09/19/18 20:10 Globulin 3.6 gm/dL (2.2-3.9) 09/19/18 20:10 Albumin/Globulin Ratio 1.4 (1.0-2.1) 09/19/18 20:10 Lipase 46 U/L (23-300) 09/19/18 20:10 Urine Color Yellow (YELLOW) 09/19/18 20:10 Urine Clarity Slighty-cloudy (Clear) 09/19/18 20:10 Urine pH 6.0 (5.0-8.0) 09/19/18 20:10 Ur Specific Rhine 1.023 (1.003-1.030) 09/19/18 20:10 Urine Protein Negative mg/dL (NEGATIVE) 09/19/18 20:10 Urine Glucose (UA) 50 mg/dL (NEGATIVE) 09/19/18 20:10 Urine Ketones Negative mg/dL (NEGATIVE) 09/19/18 20:10 Urine Blood Negative (NEGATIVE) 09/19/18 20:10 Urine Nitrate Negative (NEGATIVE) 09/19/18 20:10 Urine Bilirubin Negative (NEGATIVE) 09/19/18 20:10 Urine Urobilinogen 0.2-1.0 mg/dL (0.2-1.0) 09/19/18 20:10 Ur Leukocyte Esterase Neg Emerita/uL (Negative) 09/19/18 20:10 Urine RBC (Auto) 3 /hpf (0-3) 09/19/18 20:10 Urine Microscopic WBC 1 /hpf (0-5) 09/19/18 20:10 - ECG O2 Sat by Pulse Oximetry: 97 (RA) Pulse Ox Interpretation: Normal Medical Decision Making Medical Decision Making: Time: 0000 Patient endorsed to provider from Yana Magaña MD. Patient complains of abdominal pain. Pending CT. Time: 16 IMPRESSION: Moderate amount of fecal residue is noted in the large bowel. Constipation. Uncomplicated colonic diverticulosis. No evidence of acute abdominal or pelvic pathology. Electronically signed on September 20, 2018 12:17:32 AM EDT by: Diego Carter M.D., Certified by MIR[facility] DONNELLY, Neuroradiology -------- --------- Scribe Attestation: Documented by Jakob Richey, acting as a scribe Donna Lopez MD. Provider Scribe Attestation: All medical record entries made by the Scribe were at my direction and personally dictated by me. I have reviewed the chart and agree that the record accurately reflects my personal performance of the history, physical exam, medical decision making, and the department course for this patient. I have also personally directed, reviewed, and agree with the discharge instructions and disposition. Disposition Counseled Patient/Family Regarding: Studies Performed, Diagnosis - Clinical Impression Clinical Impression: Abdominal pain, Constipation - POA Present On Arrival: None - Disposition Disposition: Routine/Home Disposition Time: 01:09 Condition: STABLE Instructions: Stomach Ache and Stomach Upset Forms: [facility] (Somali), Opioid Discharge Information Print Language: DANISH
[2018-09-20 02:01] VITALS: BP 126/74; PULSE 85; RESP 18; TEMP 98.3
--- NOTE | 2018-09-20 12:27 | CT ---
Date of service: 09/19/2018 PROCEDURE: CT Abdomen and Pelvis with contrast HISTORY: abd pain bloody stool COMPARISON: 11/14/2017 TECHNIQUE: Contrast dose: 90 mL Omnipaque 300 Radiation dose: Total exam DLP = 228.35 mGy-cm. This CT exam was performed using one or more of the following dose reduction techniques: Automated exposure control, adjustment of the mA and/or kV according to patient size, and/or use of iterative reconstruction technique. FINDINGS: LOWER THORAX: Unremarkable. LIVER: Unremarkable. No gross lesion or ductal dilatation. GALLBLADDER AND BILE DUCTS: Unremarkable. PANCREAS: Unremarkable. No gross lesion or ductal dilatation. SPLEEN: Unremarkable. ADRENALS: Unremarkable. No mass. KIDNEYS AND URETERS: Unremarkable. No hydronephrosis. No solid mass. VASCULATURE: Unremarkable. No aortic aneurysm. No aortic atherosclerotic calcification or mural plaque present. BOWEL: Scattered colonic diverticula. No evidence of diverticulitis. No bowel obstruction. No other abnormal bowel loops are identified. APPENDIX: Normal appendix. PERITONEUM: Unremarkable. No free fluid. No free air. LYMPH NODES: Unremarkable. No enlarged lymph nodes. BLADDER: Suboptimally distended. Grossly REPRODUCTIVE: Unremarkable. Mild prostate BONES: No acute fracture. OTHER FINDINGS: None. IMPRESSION: Colonic diverticulosis. No evidence of diverticulitis. No other significant abnormality identified. The preliminary findings for this examination were reported by [facility] at 12:17 a.m. on 09/20/2018. There is concurrence of this report with the preliminary findings.
--- NOTE | 2018-09-20 14:11 | RAD ---
Date of service: 09/19/2018 PROCEDURE: Radiographs of the chest and abdomen (obstructive series) HISTORY: abd pain r/o sbo COMPARISON: No prior. TECHNIQUE: AP radiograph of the chest, with upright and supine radiographs of the abdomen. 3 views obtained. FINDINGS: CHEST: Lungs: Clear. Cardiovascular: Normal size heart. No pulmonary vascular congestion. No aortic atherosclerotic calcification present Pleura: No pleural fluid. No pneumothorax. Other findings: None. ABDOMEN AND PELVIS: Bowel: Unremarkable bowel gas pattern. No evidence of mechanical obstruction. Free air: None. Bones: Unremarkable. Other findings: None. IMPRESSION: Unremarkable radiographs of chest and abdomen. No evidence of mechanical bowel obstruction.
[2018-09-22 10:59] VITALS: O2SAT 97
== END 2018-09-20 01:15 | disposition home or self-care (01) ==
LOC: H.ER 18:55
DX: R10.9 Unspecified abdominal pain (principal); K59.00 Constipation, unspecified; Z88.0 Allergy status to penicillin; Z88.6 Allergy status to analgesic agent
CPT/HCPCS: 74022; 74177; 80053; 81003; 83605; 83690; 85025; 96361; 96374; 99283; J1885; J7030; Q9966; Q9967